=== PATIENT | male | born 1945 | race Caucasian/White ===

== ENCOUNTER 2018-06-25 11:52 | Day surgery (SDC) | payer MEDICARE, OTHER ==
[~2018-06-25] VITALS: Ht 172.7 cm; Wt 65.7 kg
[~2018-06-25 11:52] MED LIST: CEFP500 PO; FURO20 PO; LEVSOD100 PO; POTA10T PO; SODCHL1 PO; TAMS.4ER PO
[2018-06-25] MEDS ORDERED: METO25ER (13:56)
== END 2018-06-25 16:05 | disposition home or self-care (01) ==
LOC: ORSCSDS 11:52
PROVIDERS: Internal Medicine Gastroenterology
PROC: 0DBK8ZX Excision of Ascending Colon, Via Natural or Artificial Opening Endoscopic, Diagnostic (ICD-10-PCS; principal; 2018-06-25 14:15)
PROC: 0DBH8ZX Excision of Cecum, Via Natural or Artificial Opening Endoscopic, Diagnostic (ICD-10-PCS; principal; 2018-06-25 14:15)
DX: R19.4 Change in bowel habit (principal); D12.0 Benign neoplasm of cecum; D12.2 Benign neoplasm of ascending colon; K64.8 Other hemorrhoids; K57.30 Diverticulosis of large intestine without perforation or abscess without bleeding; Z80.0 Family history of malignant neoplasm of digestive organs; I10 Essential (primary) hypertension; N18.3 Chronic kidney disease, stage 3 (moderate); E03.9 Hypothyroidism, unspecified; Z79.899 Other long term (current) drug therapy
CPT/HCPCS: 88305; J7120

== ENCOUNTER 2018-06-30 07:21 | Inpatient (IN) | payer MEDICARE, OTHER ==
[~2018-06-30] VITALS: Ht 172.7 cm; Wt 63.1 kg
[~2018-06-30 07:21] MED LIST changes: +METO25ER
[2018-06-30 07:51] LABS: BASOPHILS ABSOLUTE AUTO 0.02 K/mm3 (0.00-0.23); BASOPHILS PERCENT AUTO 0 % (0-2); EOSINOPHILS ABSOLUTE AUTO 0.03 K/mm3 (0.00-0.68); EOSINOPHILS PERCENT AUTO 1 % (0-6); Hematocrit 42.1 % (37.0-53.0); Hemoglobin 15.6 g/dL (13.5-17.5); IMMATURE GRAN ABSOLUTE AUTO 0.01 K/mm3 (0.00-0.10); IMMATURE GRAN PERCENT AUTO 0 % (0-1); LYMPHOCYTES ABSOLUTE AUTO 1.59 K/mm3 (0.84-5.20); LYMPHOCYTES PERCENT AUTO 25 % (21-46); MONOCYTES ABSOLUTE AUTO 0.79 K/mm3 (0.16-1.47); MONOCYTES PERCENT AUTO 13 % (4-13); Mean Corpuscular HGB 30.5 pg (26.0-34.0); Mean Corpuscular HGB Conc 37.1 g/dL (31.5-36.5); Mean Corpuscular Volume 82 fL (80-100); NEUTROPHILS ABSOLUTE AUTO 3.87 K/mm3 (1.96-9.15); NEUTROPHILS PERCENT AUTO 61 % (41-73); Platelet Count 161 K/mm3 (150-400); RDW Coefficient Variation 12.2 % (11.7-14.2); Red Blood Cell Count 5.12 M/mm3 (4.30-5.90); White Blood Cell Count 6.31 K/mm3 (4.00-11.30)
[2018-06-30 08:10] LABS: Troponin I <0.015 ng/mL (0.000-0.040)
[2018-06-30 08:22] LABS: Alanine Aminotransfer (ALT/SGP 42 U/L (12-78); Albumin, Blood 3.8 g/dL (3.4-5.0); Albumin/Globulin Ratio 1.2 (0.8-1.8); Alk Phos 71 U/L (50-136); Anion Gap 9 mmol/L (6-16); Aspartate Aminotrans (AST/SGOT 45 U/L (12-37); Bilirubin, Total 0.6 mg/dL (0.1-1.0); Blood Urea Nitrogen 20 mg/dL (8-24); Bun/Creatinine Ratio 19.2 (12.0-20.0); CO2, Blood 20 mmol/L (21-32); Calcium, Blood 8.1 mg/dL (8.5-10.1); Chloride, Blood 85 mmol/L (98-108); Creatinine, Blood 1.04 mg/dL (0.60-1.20); Globulin, Blood 3.3 g/dL (2.2-4.0); Glomerular Filtration Rate >60 (60-); Glucose, Blood 82 mg/dL (70-99); Potassium, Blood 5.4 mmol/L (3.5-5.5); Sodium, Blood 114 mmol/L (136-145); Total Protein, Blood 7.1 g/dL (6.4-8.2)
[2018-06-30] MEDS ORDERED: METO25ER PO (08:51)
[2018-07-01 04:38] LABS: Albumin, Blood 3.6 g/dL (3.4-5.0); Anion Gap 11 mmol/L (6-16); Blood Urea Nitrogen 22 mg/dL (8-24); Bun/Creatinine Ratio 16.5 (12.0-20.0); CO2, Blood 23 mmol/L (21-32); Calcium, Blood 8.1 mg/dL (8.5-10.1); Chloride, Blood 87 mmol/L (98-108); Creatinine, Blood 1.33 mg/dL (0.60-1.20); Glomerular Filtration Rate 56 (60-); Glucose, Blood 86 mg/dL (70-99); Phosphorus, Blood 4.5 mg/dL (2.5-4.9); Potassium, Blood 4.6 mmol/L (3.5-5.5); Sodium, Blood 121 mmol/L (136-145); Thyroxine (T4) 11.5 ug/dL (4.5-12.1)
[2018-07-01 04:45] LABS: Osmolality, Serum 258 mos/KG (275-300)
[2018-07-02 04:27] LABS: Calcium, Blood 7.5 mg/dL (8.5-10.1); Creatinine, Blood 1.25 mg/dL (0.60-1.20); Potassium, Blood 4.8 mmol/L (3.5-5.5)
[2018-07-03 05:08] LABS: Alanine Aminotransfer (ALT/SGP 36 U/L (12-78); Albumin, Blood 3.3 g/dL (3.4-5.0); Alk Phos 70 U/L (50-136); Anion Gap 6 mmol/L (6-16); Aspartate Aminotrans (AST/SGOT 27 U/L (12-37); Bilirubin, Total 0.5 mg/dL (0.1-1.0); Blood Urea Nitrogen 19 mg/dL (8-24); Bun/Creatinine Ratio 15.8 (12.0-20.0); CO2, Blood 25 mmol/L (21-32); Calcium, Blood 7.8 mg/dL (8.5-10.1); Chloride, Blood 93 mmol/L (98-108); Globulin, Blood 3.2 g/dL (2.2-4.0); Glomerular Filtration Rate >60 (60-); Glucose, Blood 86 mg/dL (70-99); Potassium, Blood 4.6 mmol/L (3.5-5.5); Sodium, Blood 124 mmol/L (136-145); Total Protein, Blood 6.5 g/dL (6.4-8.2)
[2018-07-03] MEDS ORDERED: LIOT5 PO (09:00)
[2018-07-03] MEDS ORDERED: LEVSOD50 PO (09:00)
[2018-07-03] MEDS ORDERED: Micro-K10 MEQ PO (09:01)
[2018-07-03] MEDS ORDERED: SODCHL1 PO (09:02)
[2018-07-03] MEDS ORDERED: TEMA15 PO (09:03)
[2018-07-03] MEDS ORDERED: FURO20 PO (09:03)
== END 2018-07-03 09:57 | disposition home or self-care (01) | DRG 641 ==
LOC: ER 07:21 → PCU 08:32 → MEDS 07-02 17:59 → ENPENDDIS 07-03 08:21 → MEDS 07-03 09:57
PROVIDERS: Emergency Medicine; Family Medicine
DX: E87.1 Hypo-osmolality and hyponatremia (principal); E03.9 Hypothyroidism, unspecified; I47.9 Paroxysmal tachycardia, unspecified; Z79.899 Other long term (current) drug therapy
CPT/HCPCS: 36415; 80048; 80053; 80069; 83540; 83930; 84436; 84443; 84481; 84484; 85025; 93005; 93010; 96360; 96361; 99285-25; J1940; J7030

== ENCOUNTER 2019-02-04 05:57 | Inpatient (IN) | payer MEDICARE, OTHER ==
[~2019-02-04] VITALS: Ht 172.7 cm; Wt 63.5 kg
[~2019-02-04 05:57] MED LIST changes: +LEVSOD50 PO; +LIOT5 PO; +METO25ER PO; +Micro-K10 MEQ PO; +TEMA15 PO
[2019-02-04 06:34] LABS: BASOPHILS ABSOLUTE AUTO 0.04 K/mm3 (0.00-0.23); BASOPHILS PERCENT AUTO 0 % (0-2); EOSINOPHILS ABSOLUTE AUTO 0.04 K/mm3 (0.00-0.68); EOSINOPHILS PERCENT AUTO 0 % (0-6); Hematocrit 47.6 % (37.0-53.0); Hemoglobin 15.6 g/dL (13.5-17.5); IMMATURE GRAN ABSOLUTE AUTO 0.05 K/mm3 (0.00-0.10); IMMATURE GRAN PERCENT AUTO 1 % (0-1); LYMPHOCYTES ABSOLUTE AUTO 1.71 K/mm3 (0.84-5.20); LYMPHOCYTES PERCENT AUTO 17 % (21-46); MONOCYTES ABSOLUTE AUTO 1.11 K/mm3 (0.16-1.47); MONOCYTES PERCENT AUTO 11 % (4-13); Mean Corpuscular HGB 29.7 pg (26.0-34.0); Mean Corpuscular HGB Conc 32.8 g/dL (31.5-36.5); Mean Corpuscular Volume 91 fL (80-100); Mean Platelet Volume 12.1 fL (9.1-12.4); NEUTROPHILS ABSOLUTE AUTO 7.06 K/mm3 (1.96-9.15); NEUTROPHILS PERCENT AUTO 71 % (41-73); Platelet Count 201 K/mm3 (150-400); RDW Coefficient Variation 13.2 % (11.7-14.2); RDW Standard Deviation 44.2 fL (35.1-46.3); Red Blood Cell Count 5.26 M/mm3 (4.30-5.90); White Blood Cell Count 10.01 K/mm3 (4.00-11.30)
[2019-02-04 06:45] LABS: Albumin, Blood 3.4 g/dL (3.4-5.0); Albumin/Globulin Ratio 0.8 (0.8-1.8); Bilirubin, Total 1.3 mg/dL (0.1-1.0); Bun/Creatinine Ratio 9.1 (12.0-20.0); Calcium, Blood 8.5 mg/dL (8.5-10.1); Creatinine, Blood 4.08 mg/dL (0.60-1.20); Potassium, Blood 5.2 mmol/L (3.5-5.5); Total Protein, Blood 7.4 g/dL (6.4-8.2)
[2019-02-04 06:51] LABS: Influenza A Negative (NEGATIVE); Influenza B Negative (NEGATIVE)
[2019-02-04 08:19] LABS: Free Thyroxine 0.72 ng/dL (0.70-1.60); Magnesium, Blood 1.7 mg/dL (1.6-2.4)
[2019-02-04] MEDS ORDERED: LIOT5 PO (11:45)
[2019-02-04 15:16] LABS: Bun/Creatinine Ratio 10.2 (12.0-20.0); Calcium, Blood 7.2 mg/dL (8.5-10.1); Creatinine, Blood 3.34 mg/dL (0.60-1.20); Potassium, Blood 5.8 mmol/L (3.5-5.5)
[2019-02-04 17:44] LABS: Adenovirus F 40/41 Not Detected (NOT DETECT); Astrovirus Not Detected (NOT DETECT); Campylobacter Sp Not Detected (NOT DETECT); Cryptosporidium Not Detected (NOT DETECT); Cyclospora Cayetanensis Not Detected (NOT DETECT); E. Coli O157 Not Detected (NOT DETECT); Entamoeba Histolytica Not Detected (NOT DETECT); Enteroaggregative E. coli-EAEC Not Detected (NOT DETECT); Enteropathogenic E. coli-EPEC Not Detected (NOT DETECT); Enterotoxigenic E. coli-ETEC Not Detected (NOT DETECT); Giardia Lamblia Not Detected (NOT DETECT); Norovirus GI/GII Detected (NOT DETECT); Plesiomonas Shigelloides Not Detected (NOT DETECT); Rotavirus A Not Detected (NOT DETECT); Salmonella Sp Not Detected (NOT DETECT); Sapovirus Not Detected (NOT DETECT); Shiga Toxin-prod E. coli-STEC Not Detected (NOT DETECT); Shigella/Enteroin E. coli-EIEC Not Detected (NOT DETECT); Vibrio Cholerae Not Detected (NOT DETECT); Vibrio Sp Not Detected (NOT DETECT); Yersinia Enterocolitica Not Detected (NOT DETECT)
--- NOTE | 2019-02-04 18:01 | NUR ---
PT AOX4 JUST SUPER TIRED. PT CONTINUES TO HAVE DIARRHEA AND IS INCONNINENT, BUT HAS NOT HAD NAUSEA SO FAR. PT IN BED ALL DAY SLEEPING. LEFT RIGHT AWAY IN THE AM SHE BEGAN TO GET SICK AND VOMIT. ROOM PUT ON CONTACT UNTIL LABS COULD BE RUN. FOUND PT POSITIVE FOR NORO VIRUS. PT HASN'T WANTED TO EAT, JUST SIP SOME WATER. WILL MONITOR.
[2019-02-04 21:08] LABS: Source, Urine Voided
[2019-02-04 21:15] LABS: Bilirubin, Urine Neg (Neg); Blood, Urine 2+ (Neg); Glucose Qualitative, Urine Neg (Neg); Ketones, Urine 3+ (Neg); Leukocyte Esterase, Urine Neg (Neg); Nitrite, Urine Neg (Neg); Protein, Urine 2+ (Neg); Urobilinogen, Urine NORM (Normal)
[2019-02-04 21:24] LABS: Appearance, Urine Hazy (Clear); Color, Urine Yellow (P-Yellow)
[2019-02-04 21:25] LABS: Amorphous Mod (0-Heavy); Bacteria Rare /hpf; Mucus Light (0-Heavy); Red Blood Cells, Urine 0-2 /hpf (0-2); Squamous Epithelial Cells Rare /hpf (Few); White Blood Cells, Urine Rare /hpf (0-5)
--- NOTE | 2019-02-05 04:19 | NUR ---
73 Y/O MALE SLEPT COMFORTABLY ALL EVENING, NO DIARRHEA OR NAUSEA NOTED OR REPORTED. PT DENIES PAIN. UA OBTAINED AND SENT LAST PM. TELEMETRY REFLECTS SINUS TACHYCARDIA (100'S) PER RN CARDIOLOGY DENICE. PT CONTINUES ON CONTACT ISOLATION, BED IN LOW POSITION, CALL LIGHT AT SIDE.
[2019-02-05 05:38] LABS: Hematocrit 40.8 % (37.0-53.0); Hemoglobin 13.2 g/dL (13.5-17.5); Mean Corpuscular HGB 30.8 pg (26.0-34.0); Mean Corpuscular HGB Conc 32.4 g/dL (31.5-36.5); Mean Corpuscular Volume 95 fL (80-100); Mean Platelet Volume 11.1 fL (9.1-12.4); Platelet Count 138 K/mm3 (150-400); RDW Coefficient Variation 13.5 % (11.7-14.2); RDW Standard Deviation 47.7 fL (35.1-46.3); Red Blood Cell Count 4.29 M/mm3 (4.30-5.90); White Blood Cell Count 4.89 K/mm3 (4.00-11.30)
[2019-02-05 06:01] LABS: Bun/Creatinine Ratio 13.6 (12.0-20.0); Calcium, Blood 8.1 mg/dL (8.5-10.1); Creatinine, Blood 2.13 mg/dL (0.60-1.20); Potassium, Blood 4.9 mmol/L (3.5-5.5)
[2019-02-05 06:07] LABS: Thyroxine (T4) 3.8 ug/dL (4.5-12.1); Triiodothyronine, Free 1.32 pg/mL (2.18-3.98)
--- NOTE | 2019-02-05 17:38 | NUR ---
SUMMARY PT RESTING QUIETLY, HAS HAD A POOR APPETITE T/O THE DAY, IV FLUIDS CONTINUED, PT MED PER EMAR FOR NAUSEA AND FEVER, WILL CONT TO MONITOR
--- NOTE | 2019-02-05 20:56 | NUR ---
NO ACUTE CHANGES NOTED. NO CURRENT COMPLAINTS OF PAIN OR DISCOMFORT NOTED. PATIENT STATES HE IS VERY TIRED AND HAS SLEPT MOST OF THE DAY. NO OTHER ISSUES NOTED, WILL CONTINUE TO MONITOR FOR CHANGES.
--- NOTE | 2019-02-05 22:13 | NUR ---
2030 REPORT RECEIVED. PT RESTING COMFORTABLY IN BED. CONTACT ISOLATION MAINTAINED.
--- NOTE | 2019-02-06 05:01 | NUR ---
73 Y/O MALE RESTED COMFORTABLY ALL EVENING. PTS CONTINUES TO BE CONTACT ISOLATION DUE TO NORVIRUS. PT DENIES PAIN OR NAUSEA. PTS CALL LIGHT AT SIDE WITH BED IN LOW POSITION.
--- NOTE | 2019-02-06 17:23 | NUR ---
SHIFT SUMMARY PT HAS HAD NO ACUTE CHANGES THIS SHIFT, MEDICATED 1X FOR FEVER, NO OTHER COMPLAINTS. PO INTAKE REMAINS POOR, PT REPORTS HE IS NOT HAVING DIARRHEA OR NAUSEA THIS SHIFT, SLEPT T/O MOST OF SHIFT, APPEARS TO BE SLEEPING AT THIS TIME, WILL CONT TO MONITOR UNTIL REPORT GIVEN TO XAVIER RN.
--- NOTE | 2019-02-07 04:14 | NUR ---
SHIFT SUMMARY NO N/V THIS SHIFT. PT HAS DENIED GI COMPLAINTS AND HAS SLEPT T/O THE SHIFT. HE HOWEVER DOES REPORT POOR APPETITE. IVF INFUSING ORDERED. PT INDEPENDENT AND AMBULATORY IN THE ROOM. NO COMPLAINTS OF PAIN. ASSESSMENT UNCHANGED. PLAN IS FOR DC TODAY. WILL CONTINUE TO MONITOR AND REPORT TO ONCOMING RN.
[2019-02-07 05:47] LABS: Albumin, Blood 2.5 g/dL (3.4-5.0); Anion Gap 11 mmol/L (6-16); Blood Urea Nitrogen 13 mg/dL (8-24); Bun/Creatinine Ratio 12.7 (12.0-20.0); CO2, Blood 18 mmol/L (21-32); Calcium, Blood 8.3 mg/dL (8.5-10.1); Chloride, Blood 103 mmol/L (98-108); Creatinine, Blood 1.02 mg/dL (0.60-1.20); Glomerular Filtration Rate >60 (60-); Glucose, Blood 65 mg/dL (70-99); Phosphorus, Blood 3.1 mg/dL (2.5-4.9); Potassium, Blood 4.3 mmol/L (3.5-5.5); Sodium, Blood 132 mmol/L (136-145)
--- NOTE | 2019-02-07 16:12 | NUR ---
SHIFT SUMMARY PT HAS HAD NO ACUTE CHANGES THIS SHIFT, MEDICATED 1X FOR HEADACHE, NO OTHER COMPLAINTS OF ANY KIND. PO INTAKE CONTINUES TO BE POOR, PT BEDRESTING AT THIS TIME, WILL CONT TO MONITOR UNTIL REPORT GIVEN TO XAVIER CHIU.
--- NOTE | 2019-02-08 04:42 | NUR ---
SHIFT SUMMARY NO ACUTE CHANGES OVERNIGHT. PT HAS DENIED NEEDS T/O THE SHIFT. NO N/V, DIARRHEA OR PAIN. PT REPORTS THAT HIS APPETITE IS SOMEWHAT RETURNING AND THAT HE WAS ABLE TO EAT SOME OF HIS DINNER. HE DENIES ABD PAIN. VITALS STABLE. ASSESSMENT OTHERWISE UNCHANGED. PLAN IS FOR DISCHARGE TODAY. TELE IN PLACE WITH NSR. WILL CONTINUE TO MONITOR AND REPORT TO ONCOMING RN.
[2019-02-08 05:49] LABS: Albumin, Blood 2.6 g/dL (3.4-5.0); Anion Gap 9 mmol/L (6-16); Blood Urea Nitrogen 13 mg/dL (8-24); Bun/Creatinine Ratio 12.9 (12.0-20.0); CO2, Blood 24 mmol/L (21-32); Calcium, Blood 8.4 mg/dL (8.5-10.1); Chloride, Blood 103 mmol/L (98-108); Creatinine, Blood 1.01 mg/dL (0.60-1.20); Glomerular Filtration Rate >60 (60-); Glucose, Blood 84 mg/dL (70-99); Phosphorus, Blood 3.6 mg/dL (2.5-4.9); Potassium, Blood 3.9 mmol/L (3.5-5.5); Sodium, Blood 136 mmol/L (136-145)
[2019-02-08] MEDS ORDERED: [UNRECOGNIZED DRUG - OTHER] PO (12:54)
[2019-02-08] MEDS ORDERED: PANT40 PO (12:58)
--- NOTE | 2019-02-08 14:15 | NUR ---
PT. DISCHARGED HOME WITH SPOUSE, MEDS CALLED TO [facility]. PT. AND SPOUSE VERBALIZED UNDERSTANDING OF DISCHARGE INSTRUCTIONS.
== END 2019-02-08 14:19 | disposition home or self-care (01) | DRG 683 ==
LOC: ER 05:57 → MEDS 08:40
PROVIDERS: Emergency Medicine; Internal Medicine; ADMIT Internal Medicine
DX: N17.9 Acute kidney failure, unspecified (principal); E87.1 Hypo-osmolality and hyponatremia; I47.1 Supraventricular tachycardia; A08.4 Viral intestinal infection, unspecified; E86.0 Dehydration; I10 Essential (primary) hypertension; E87.6 Hypokalemia; E03.9 Hypothyroidism, unspecified; Z91.14 Patient's other noncompliance with medication regimen; R13.10 Dysphagia, unspecified
CPT/HCPCS: 36415; 74022; 76770; 80048; 80053; 80069; 81001; 83735; 84436; 84439; 84443; 84481; 85025; 85027; 87507; 87804; 93005; 93010; 96360; 97161; 99285-25; C9113; J2405; J7030; J7050; J7120

== ENCOUNTER 2021-02-17 01:03 | Observation (INO) | payer MEDICARE, OTHER ==
[~2021-02-17] VITALS: Ht 172.7 cm; Wt 64.0 kg
[~2021-02-17 01:03] MED LIST changes: -LEVSOD50 PO; +PANT40 PO; +[UNRECOGNIZED DRUG - OTHER] PO
[2021-02-17 02:22] LABS: BASOPHILS ABSOLUTE AUTO 0.04 K/mm3 (0.00-0.23); BASOPHILS PERCENT AUTO 1 % (0-2); EOSINOPHILS ABSOLUTE AUTO 0.15 K/mm3 (0.00-0.68); EOSINOPHILS PERCENT AUTO 3 % (0-6); Hematocrit 43.6 % (37.0-53.0); Hemoglobin 15.7 g/dL (13.5-17.5); IMMATURE GRAN ABSOLUTE AUTO 0.02 K/mm3 (0.00-0.10); IMMATURE GRAN PERCENT AUTO 0 % (0-1); LYMPHOCYTES ABSOLUTE AUTO 2.42 K/mm3 (0.84-5.20); LYMPHOCYTES PERCENT AUTO 40 % (21-46); MONOCYTES ABSOLUTE AUTO 0.79 K/mm3 (0.16-1.47); MONOCYTES PERCENT AUTO 13 % (4-13); Mean Corpuscular Volume 83 fL (80-100); Mean Platelet Volume 10.8 fL (9.1-12.4); NEUTROPHILS ABSOLUTE AUTO 2.64 K/mm3 (1.96-9.15); NEUTROPHILS PERCENT AUTO 44 % (41-73); Platelet Count 229 K/mm3 (150-400); RDW Coefficient Variation 12.2 % (11.7-14.2); RDW Standard Deviation 37.2 fL (35.1-46.3); Red Blood Cell Count 5.23 M/mm3 (4.30-5.90); White Blood Cell Count 6.06 K/mm3 (4.00-11.30)
[2021-02-17 02:34] LABS: Albumin, Blood 3.9 g/dL (3.4-5.0); Albumin/Globulin Ratio 1.1 (0.8-1.8); Bilirubin, Total 0.7 mg/dL (0.1-1.0); Calcium, Blood 8.3 mg/dL (8.5-10.1); Creatinine, Blood 2.33 mg/dL (0.60-1.20); Globulin, Blood 3.4 g/dL (2.2-4.0); Potassium, Blood 4.2 mmol/L (3.5-5.5); Total Protein, Blood 7.3 g/dL (6.4-8.2)
[2021-02-17 02:37] LABS: International Normalized Ratio 1.02; Prothrombin Time Results 10.9 Sec (9.7-11.5)
[2021-02-17] MEDS ORDERED: LIOT5 PO (03:20)
[2021-02-17] MEDS ORDERED: SODCHL1 (03:21)
[2021-02-17] MEDS ORDERED: Bumetanide0.5 MG (03:26)
[2021-02-17 12:22] LABS: Source, Urine Clean Catch
[2021-02-17 12:25] LABS: Appearance, Urine Clear (Clear); Bilirubin, Urine Neg (Neg); Blood, Urine Neg (Neg); Color, Urine Yellow (P-Yellow); Glucose Qualitative, Urine Neg (Neg); Ketones, Urine Neg (Neg); Leukocyte Esterase, Urine Neg (Neg); Nitrite, Urine Neg (Neg); Protein, Urine Neg (Neg); Specific Gravity, Urine 1.015 (1.003-1.022); Urobilinogen, Urine NORM (Normal)
[2021-02-17] MEDS ORDERED: BUME2 PO (14:23)
[2021-02-17] MEDS ORDERED: SODCHL1 PO (14:26)
--- NOTE | 2021-02-17 16:49 | NUR ---
SHIFT SUMMARY PT IS AOX4. PT DENIES PAIN, N/V, SOB. PT IS A ONE PERSON ASSIST TO BATHROOM. TELE RUNNING SINUS RHYTHM WITH PVCS AT 73 BPM. PT HAS MODERATE INTAKE AND APPETITE. PT HAD CHEST XRAY, HEAD CT, RENAL US, AND ECHO DONE IN ER. PLAN IS TO CONTINUE IV HYDRATION AND NORMALIZE ELECTROLYTES. PT DID NOT HAVE VISITORS TODAY. PT IS PLEASANT, IV RUNNING AT 100ML/HR. PT IS IN BED, CALL LIGHT IN REACH, ALARM ON.
--- NOTE | 2021-02-18 03:18 | NUR ---
SHIFT SUMMARY: VSS. AFEB. 02 97% ON RA. AAOX4. COMMUNICATES NEEDS. REMAINED IN BED ALL NIGHT, USING URINAL WHILE SITTING AT EDGE OF BED. DENIES DIZZINESS AND LIGHTHEADEDNESS WHILE IN BED. MAINTENANCE IV FLUIDS INFUSING PER ORDERS. NSR, 73 PER TELE MONITOR. NO ACUTE OVERNIGHT EVENTS. WCTM.
[2021-02-18 05:28] LABS: BASOPHILS ABSOLUTE AUTO 0.04 K/mm3 (0.00-0.23); BASOPHILS PERCENT AUTO 1 % (0-2); EOSINOPHILS ABSOLUTE AUTO 0.13 K/mm3 (0.00-0.68); EOSINOPHILS PERCENT AUTO 3 % (0-6); Hematocrit 39.8 % (37.0-53.0); Hemoglobin 13.6 g/dL (13.5-17.5); IMMATURE GRAN PERCENT AUTO 0 % (0-1); LYMPHOCYTES ABSOLUTE AUTO 1.85 K/mm3 (0.84-5.20); LYMPHOCYTES PERCENT AUTO 44 % (21-46); MONOCYTES ABSOLUTE AUTO 0.58 K/mm3 (0.16-1.47); MONOCYTES PERCENT AUTO 14 % (4-13); Mean Corpuscular HGB 29.8 pg (26.0-34.0); Mean Corpuscular HGB Conc 34.2 g/dL (31.5-36.5); Mean Corpuscular Volume 87 fL (80-100); Mean Platelet Volume 10.8 fL (9.1-12.4); NEUTROPHILS ABSOLUTE AUTO 1.61 K/mm3 (1.96-9.15); NEUTROPHILS PERCENT AUTO 38 % (41-73); Platelet Count 195 K/mm3 (150-400); RDW Coefficient Variation 12.4 % (11.7-14.2); RDW Standard Deviation 39.6 fL (35.1-46.3); Red Blood Cell Count 4.57 M/mm3 (4.30-5.90); White Blood Cell Count 4.21 K/mm3 (4.00-11.30)
[2021-02-18 06:11] LABS: Albumin, Blood 3.2 g/dL (3.4-5.0); Albumin/Globulin Ratio 1.1 (0.8-1.8); Bilirubin, Total 0.5 mg/dL (0.1-1.0); Bun/Creatinine Ratio 24.3 (12.0-20.0); Creatinine, Blood 1.73 mg/dL (0.60-1.20); Potassium, Blood 5.5 mmol/L (3.5-5.5); Thyroid Stimulating Hormone 16.8 uIU/mL (0.360-4.800); Total Protein, Blood 6.2 g/dL (6.4-8.2)
--- NOTE | 2021-02-18 13:50 | NUR ---
DISCHARGE NOTE PT IS AOX4. PT IV REMOVED BY THIS RN. DC INSTRUCTIONS REVIEWED WITH PT WHO VERBALIZED AN UNDERSTANDING. PT BELONGINGS GATHERED AND PRESENT WITH PT UPON DC. PT DRESSED SELF IN HOME CLOTHING. PT WHEELED OFF UNIT WITH AND PUBLIC RECORDS RESEARCHER. PT HAS LEFT THE BUILDING.
--- NOTE | 2021-02-18 20:37 | NUR ---
REVIEWED PT'S INFO TO GET SCRIPT AND FAX TO PHARMACY FOR ONE OF HIS NEW MEDS FOR HOME
== END 2021-02-18 13:59 | disposition home or self-care (01) ==
LOC: ER 01:03 → MEDS 01:04
PROVIDERS: Student in an Organized Health Care Education/Training Program; ADMIT Internal Medicine
DX: N17.9 Acute kidney failure, unspecified (principal); I95.1 Orthostatic hypotension; E86.9 Volume depletion, unspecified; E87.1 Hypo-osmolality and hyponatremia; I12.9 Hypertensive chronic kidney disease with stage 1 through stage 4 chronic kidney disease, or unspecified chronic kidney disease; N18.30 Chronic kidney disease, stage 3 unspecified; E03.9 Hypothyroidism, unspecified; N40.0 Benign prostatic hyperplasia without lower urinary tract symptoms
CPT/HCPCS: 36415; 70450; 71045; 76770; 80053; 81003; 83735; 84443; 85025; 85610; 85730; 93005; 93010; 96372; 99285-25; A9270; G0378; J1650; J7030

== ENCOUNTER 2021-11-04 04:10 | Inpatient (IN) | payer MEDICARE, OTHER ==
[~2021-11-04] VITALS: Ht 172.7 cm; Wt 60.9 kg
[~2021-11-04 04:10] MED LIST changes: +BUME2 PO; +Bumetanide0.5 MG; +SODCHL1
[2021-11-04 05:58] LABS: BASOPHILS ABSOLUTE AUTO 0.03 K/mm3 (0.00-0.23); BASOPHILS PERCENT AUTO 1 % (0-2); EOSINOPHILS ABSOLUTE AUTO 0.14 K/mm3 (0.00-0.68); EOSINOPHILS PERCENT AUTO 3 % (0-6); Hematocrit 40.9 % (37.0-53.0); IMMATURE GRAN ABSOLUTE AUTO 0.01 K/mm3 (0.00-0.10); IMMATURE GRAN PERCENT AUTO 0 % (0-1); LYMPHOCYTES ABSOLUTE AUTO 2.23 K/mm3 (0.84-5.20); LYMPHOCYTES PERCENT AUTO 40 % (21-46); MONOCYTES ABSOLUTE AUTO 0.71 K/mm3 (0.16-1.47); MONOCYTES PERCENT AUTO 13 % (4-13); Mean Corpuscular Volume 79 fL (80-100); Mean Platelet Volume 11.1 fL (9.1-12.4); NEUTROPHILS ABSOLUTE AUTO 2.47 K/mm3 (1.96-9.15); NEUTROPHILS PERCENT AUTO 44 % (41-73); Platelet Count 236 K/mm3 (150-400); RDW Coefficient Variation 11.6 % (11.7-14.2); RDW Standard Deviation 33.6 fL (35.1-46.3); Red Blood Cell Count 5.17 M/mm3 (4.30-5.90); White Blood Cell Count 5.59 K/mm3 (4.00-11.30)
[2021-11-04 06:14] LABS: Albumin, Blood 3.8 g/dL (3.4-5.0); Bilirubin, Total 0.6 mg/dL (0.1-1.0); Bun/Creatinine Ratio 15.3 (12.0-20.0); Calcium, Blood 8.4 mg/dL (8.5-10.1); Creatinine, Blood 1.24 mg/dL (0.60-1.20); Globulin, Blood 3.7 g/dL (2.2-4.0); Potassium, Blood 4.9 mmol/L (3.5-5.5); Total Protein, Blood 7.5 g/dL (6.4-8.2)
[2021-11-04 06:58] LABS: Hemoglobin 16.1 g/dL (13.5-17.5); Mean Corpuscular HGB Conc 37.3 g/dL (31.5-36.5)
[2021-11-04 07:23] LABS: Source, Urine Clean Catch
[2021-11-04 07:29] LABS: Appearance, Urine Clear (Clear); Bilirubin, Urine Neg (Neg); Blood, Urine Neg (Neg); Color, Urine Yellow (P-Yellow); Glucose Qualitative, Urine Neg (Neg); Ketones, Urine Neg (Neg); Leukocyte Esterase, Urine Neg (Neg); Nitrite, Urine Neg (Neg); Protein, Urine Neg (Neg); Urobilinogen, Urine NORM (Normal)
[2021-11-04 10:23] LABS: Albumin, Blood 3.6 g/dL (3.4-5.0); Anion Gap 9 mmol/L (6-16); Blood Urea Nitrogen 18 mg/dL (8-24); Bun/Creatinine Ratio 14.5 (12.0-20.0); CO2, Blood 24 mmol/L (21-32); Calcium, Blood 8.6 mg/dL (8.5-10.1); Chloride, Blood 78 mmol/L (98-108); Creatinine, Blood 1.24 mg/dL (0.60-1.20); Glomerular Filtration Rate 56 (60-); Glucose, Blood 83 mg/dL (70-99); Phosphorus, Blood 2.9 mg/dL (2.5-4.9); Potassium, Blood 4.7 mmol/L (3.5-5.5); Sodium, Blood 111 mmol/L (136-145)
--- NOTE | 2021-11-04 11:00 | NUR ---
INITIAL ASSESSMENT PATIENT ARRIVED FROM ER AT 1014. PATIENT AFEBRILE. PATIENT ALERT AND ORIENTED X 4. PATIENT SLIGHTLY WEAKENED AND AMBULATION IS OFF BALANCE. PATIENT DENIES PAIN. LUNGS CLEAR T/O. PATIENT SATTING 90% AND GREATER ON RA. PATIENT IN SR WITH BBB, HR IN THE 50S. SBP 140S TO 160S. GI WNL. PATIENT STATES THAT HE DID HAVE DIARRHEA "THE OTHER DAY" BUT THAT HIS GAVE HIM SOME MEDICINE FOR IT AND IT STOPPED. APPEARS WNL. SKIN APPEARS WNL. PATIENT IS ABLE TO REPOSITION HIMSELF IN BED. 3% SODIUM INFUSING AT 15 MLS/ HOUR. BED LOW, CALL LIGHT IN REACH. PATIENT ORIENTED TO UNIT, ROOM AND CALL LIGHT. WILL CONTINUE TO MONITOR PATIENT FREQUENTLY THROUGHOUT SHIFT.
--- NOTE | 2021-11-04 12:20 | NUR ---
PATIENT AFEBRILE. HR 50S TO 60S. SBP 120S TO 140S. SODIUM DRIP REMAINS AT 15 MLS/ HOUR. NO OTHER ACUTE CHANGES TO NOTE ON AT THIS TIME. WILL CONTINUE TO MONITOR.
[2021-11-04 12:37] LABS: Magnesium, Blood 1.4 mg/dL (1.6-2.4); Uric Acid, Blood 4.9 mg/dL (3.5-7.2)
[2021-11-04 12:44] LABS: Albumin, Blood 3.5 g/dL (3.4-5.0); Anion Gap 9 mmol/L (6-16); Blood Urea Nitrogen 19 mg/dL (8-24); Bun/Creatinine Ratio 15.6 (12.0-20.0); CO2, Blood 24 mmol/L (21-32); Calcium, Blood 8.1 mg/dL (8.5-10.1); Chloride, Blood 78 mmol/L (98-108); Creatinine, Blood 1.22 mg/dL (0.60-1.20); Glomerular Filtration Rate 57 (60-); Glucose, Blood 99 mg/dL (70-99); Phosphorus, Blood 2.8 mg/dL (2.5-4.9); Potassium, Blood 4.5 mmol/L (3.5-5.5); Sodium, Blood 111 mmol/L (136-145)
[2021-11-04] MEDS ORDERED: SODCHL1 PO (13:29)
[2021-11-04 14:56] LABS: Source, Urine Catheter
[2021-11-04 15:01] LABS: Appearance, Urine Clear (Clear); Bilirubin, Urine Neg (Neg); Blood, Urine Neg (Neg); Color, Urine Yellow (P-Yellow); Glucose Qualitative, Urine Neg (Neg); Ketones, Urine Neg (Neg); Leukocyte Esterase, Urine Neg (Neg); Nitrite, Urine Neg (Neg); Protein, Urine Neg (Neg); Urobilinogen, Urine NORM (Normal); pH, Urine 6.5 (5.0-8.0)
--- NOTE | 2021-11-04 15:30 | NUR ---
DR. DAVIDSON CALLED AND INFORMED OF LAB COMING BACK AT 121 FROM 111. INFORMED THAT NURSE SPOKE WITH STAFF THAT OBTAINED LAB AND THAT SODIUM INFUSING WAS NOT PAUSED WHILE LAB BEING DRAWN FROM NEARBY LINE AND THAT NURSE BELIEVED SODIUM LAB INCORRECT. INFORMED THAT SODIUM INFUSION HAD BEEN PAUSED AND NEW LAB ORDERED.
--- NOTE | 2021-11-04 16:00 | NUR ---
PATIENT AFEBRILE. HR 50S TO 60S. SBP 120S TO 140S. PFEIFFER PLACED EARLIER. 3% SODIUM DRIP INFUSING AT 25 MLS/ HOUR. NO OTHER ACUTE CHANGES TO NOTE ON AT THIS TIME. WILL CONTINUE TO MONITOR.
--- NOTE | 2021-11-04 16:19 | NUR ---
DR. PUGA CALLED AND INFORMED THAT PATIENT'S SODIUM ORIGINALLY CAME BACK AT 121 BUT THAT NURSE FELT IT WAS NOT CORRECT. SECOND SODIUM CAME BACK AT 112. ORDER FOR ANOTHER SODIUM IN 1 HOUR OBTAINED AND 3% SALINE RESTARTED.
--- NOTE | 2021-11-04 18:43 | NUR ---
SHIFT SUMMARY PATIENT REMAINED ALERT AND ORIENTED X 4, AFEBRILE. PATIENT HAD NO COMPLAINTS OF PAIN. PATIENT HAS REMAINED BEDREST THIS SHIFT AFTER APPEARING OFF BALANCE WITH TRANSFER FROM ER RBRADY TO ICU BED. PATIENT SLIGHTLY WEAK BUT ABLE TO REPOSITION SELF IN BED. PATIENT REMAINS SATTING 90% AND GREATER ON RA. PATIENT REMAINS SB TO SR WITH BBB, HR 50S TO 60S. SBP MOSTLY 1-TEENS TO 160S. PATIENT DID VAGAL AFTER POWERGLIDE PLACED. PATIENT BOUNCED BACK SHORTLY AFTER. NO BM THIS SHIFT. PATIENT HAD GOOD APPETITE. DR. PUGA PLACED PATIENT ON 1000 ML FLUID RESTRICTION. PFEIFFER PLACED FOR RETENTION BLADDER SCAN SHOWED OVER 326 MLS OF URINE LEFT OVER IN BLADDER IMMEDIATELY POST VOID. PATIENT HAD 1275 MLS OF URINE OUT THIS SHIFT. NO CHANGES TO SKIN NOTED. 3% SODIUM INCREASED FROM 15 MLS/ HOUR TO 30 MLS/ HOUR. PATIENT RECEIVED 1 G MAG THIS SHIFT. US RENAL WITH BLADDER PERFORMED THIS SHIFT. BED LOW, CALL LIGHT IN REACH. NO COMPLAINTS AT THIS TIME. REPORT WILL BE GIVEN TO ASSUMING TATTOO TECHNICIAN NURSE SHORTLY.
--- NOTE | 2021-11-04 21:23 | NUR ---
NA+ CAME BACK AT 114, CALLED , 3% NS INFUSION INCREASED TO 35 ml/hr PER MD. WILL RECHECK NA LEVEL AT 0100.
[2021-11-05 01:37] LABS: Magnesium, Blood 1.7 mg/dL (1.6-2.4)
[2021-11-05 01:39] LABS: Hemoglobin 14.8 g/dL (13.5-17.5)
[2021-11-05 01:40] LABS: Albumin, Blood 3.3 g/dL (3.4-5.0); Anion Gap 9 mmol/L (6-16); Blood Urea Nitrogen 21 mg/dL (8-24); Bun/Creatinine Ratio 18.1 (12.0-20.0); CO2, Blood 19 mmol/L (21-32); Chloride, Blood 88 mmol/L (98-108); Creatinine, Blood 1.16 mg/dL (0.60-1.20); Glomerular Filtration Rate >60 (60-); Glucose, Blood 92 mg/dL (70-99); Phosphorus, Blood 3.6 mg/dL (2.5-4.9); Potassium, Blood 4.8 mmol/L (3.5-5.5); Sodium, Blood 116 mmol/L (136-145)
--- NOTE | 2021-11-05 05:57 | NUR ---
END OF SHIFT SUMMARY: No sigificant changes in patient condition overnight. Alert and oriented x4, cooperative but was slightly upset due to q3 sodium lab draws, does understand the importance of lab draws after pt education. Pt did sleep overnight. Sodium levels have been slowly increasing, last Na+ level was 118 and new orders from Dr. Wayne have been placed and acknowledged. Did not drink much fluids overnight, encouraged pt to drink alloted 1L of fluids.
--- NOTE | 2021-11-05 08:05 | NUR ---
INITIAL ASSESSMENT PATIENT SLEEPING UPON ENTERING ROOM. PATIENT ALERT AND ORIENTED X 4, AFEBRILE. PATIENT WEAK BUT ABLE TO REPOSITION SELF IN BED. PATIENT DENIES PAIN. PATIENT SATTING 90% AND GREATER ON RA. LUNGS CLEAR. PATIENT IN SR, HR IN THE 60S. SBP 120S TO 130S. GI WNL. PFEIFFER IN PLACE FOR RETENTION. URINE CRANBERRY IN COLOR WITH BLOODY SEDIMENT NOTED. SKIN APPPEARS WNL. 3% SODIUM DRIP DC'D. PATIENT STARTED SODIUM TABS THIS AM. NEXT LABS AT 1400. BED LOW, CALL LIGHT IN REACH. WILL CONTINUE TO MONITOR PATIENT FREQUENTLY THROUGHOUT SHIFT.
--- NOTE | 2021-11-05 12:20 | NUR ---
PATIENT AFEBRILE. NO COMPLAINTS OF PAIN. HR IN THE 60S. SBP IN THE 130S. PFEIFFER DC'D. FLOMAX GIVEN. NO OTHER ACUTE CHANGES TO NOTE ON AT THIS TIME. WILL CONTINUE TO MONITOR.
--- NOTE | 2021-11-05 16:00 | NUR ---
PATIENT AFEBRILE. HR IN THE 60S. SBP IN THE LOW 100S. NO COMPLAINTS. NO OTHER ACUTE CHANGES TO NOTE ON AT THIS TIME. WILL CONTINUE TO MONITOR.
--- NOTE | 2021-11-05 18:13 | NUR ---
DR. DAVIDSON CALLED AND INFORMED THAT PATIENT VOIDED 100 MLS POST PFEIFFER AND THAT BLADDER SCAN SHOWED 101 MLS IN BLADDER POST VOID. STATED TO BLADDER SCAN Q6H AND STRAIGHT CATH IF OVER 250 MLS OF URINE.
--- NOTE | 2021-11-05 18:39 | NUR ---
SHIFT SUMMARY PATIENT REMAINED ALERT AND ORIENTED X 4, AFEBRILE. PATIENT HAD NO COMPLAINTS OF PAIN. PATIENT WORKED WITH PT AND AMBULATED IN ROOM SBA WITH FWW. PATIENT REMAINED SATTING 90% AND GREATER ON RA. PATIENT REMAINED IN SR, HR 60S TO 70S. SBP LOW 100S TO 140S. NO BM THIS SHIFT. PATIENT HAD OKAY APPETITE. PFEIFFER DC'D THIS SHIFT. URINE FROM PFEIFFER CRANBERRY COLOR WITH BLOODY SEDIMENT. URINE YELLOW IN COLOR AFTER PFEIFFER REMOVED. 101 MLS OF URINE NOTED WITH BLADDER SCANNER POST VOID OF 100 MLS URINE AFTER PFEIFFER REMOVAL. ORDERED TO BLADDER SCAN Q6H AND STRAIGHT CATH IF OVER 250 MLS OF URINE IN BLADDER. FLOMAX STARTED THIS SHIFT TO HELP WITH RETENTION. PATIENT HAD TOTAL OF 650 MLS OF URINE OUTPUT THIS SHIFT. NO CHANGE TO SKIN NOTED. PATIENT HAD PARTIAL BATH THIS SHIFT. SODIUM LAB TO BE DRAWN AT [address] PUGA TO BE CALLED BY 2100. BED LOW, CALL LIGHT IN REACH. PATIENT COMFORTABLE AT THIS TIME. REPORT WILL BE GIVEN TO ONCOMING PRODUCT SAFETY COORDINATOR NURSE SHORTLY.
--- NOTE | 2021-11-05 20:00 | NUR ---
SODIUM 3% INFUSION SALINE 3% INFUSION RESUMED PER DR PUGA AT 25 ML/HR, WILL RECHECK SODIUM LEVEL IN 2 HOURS
--- NOTE | 2021-11-05 23:05 | NUR ---
3% SALINE RATE INCREASED PER ORDERS FROM DR PUGA
--- NOTE | 2021-11-05 23:39 | NUR ---
POST VOID RESIDUAL PT VOIDED 375 ML, BLADDER SCAN FOR 219 ML AT THIS TIME. WILL CONT TO MONITOR.
--- NOTE | 2021-11-06 01:31 | NUR ---
SALINE 3% RATE INCREASED TO 35 ML/HR PER ORDERS
--- NOTE | 2021-11-06 06:00 | NUR ---
PT RESTS QUIETLY THROUGHOUT SHIFT ALTHOUGH HE STATES THAT IT HAS BEEN DIFFICULT TO SLEEP. SODIUM DECREASED TO AT 2000 DRAW, 3% SALINE INFUSION RESUMED PER DR PUGA, MOST RECENT SODIUM LEVEL IS CURRENTLY PENDING. PT STATES THAT STRENGTH FEELS LIKE IT IS IMPROVING. HE IS VOIDING WITHOUT DIFFICULTY AND POST VOID RESIDUALS VIA BLADDER SCAN ARE LESS THAN 250 ML. OTHERWISE NO ACUTE CHANGES.
[2021-11-06 06:30] LABS: Bun/Creatinine Ratio 14.9 (12.0-20.0); Creatinine, Blood 1.34 mg/dL (0.60-1.20); Potassium, Blood 5.4 mmol/L (3.5-5.5)
--- NOTE | 2021-11-06 08:16 | NUR ---
AM NOTE... ASSUMED CARE OF PT AT 0700, THE PT IS A&Ox4. THE PT DENEIS ANY PAIN AT THIS TIME. VS STABLE. L/S CLEAR T/O ON RA. NO EDEMA NOTED ON ASSESSMENT. BT PRESENT AND HYPOACTIVE, ABD IS SOFT AND NONTENDER TO PALP. THE PT IS STILL C/O OF WEAKNESS BUT STATES THIS HAS IMPROVED. THE PT ALSO STATES THAT VOIDING WITH THE URINAL HAS IMPROVED. WILL CONTINUE TO MONITOR.
[2021-11-06 12:50] LABS: Anion Gap 7 mmol/L (6-16); Blood Urea Nitrogen 18 mg/dL (8-24); Bun/Creatinine Ratio 13.5 (12.0-20.0); CO2, Blood 25 mmol/L (21-32); Chloride, Blood 91 mmol/L (98-108); Creatinine, Blood 1.33 mg/dL (0.60-1.20); Glomerular Filtration Rate 52 (60-); Glucose, Blood 100 mg/dL (70-99); Phosphorus, Blood 3.3 mg/dL (2.5-4.9); Potassium, Blood 4.7 mmol/L (3.5-5.5); Sodium, Blood 123 mmol/L (136-145)
--- NOTE | 2021-11-06 13:16 | NUR ---
PT UPDATE... PT WORKED WITH PT/OT, WHILE THE PT WAS SITTING ON THE SIDE OF THE BED THE PT HAD A SYNCOPAL EPISODE, THE PT HAD BECOME HYPOTENSIVE. ONCE THE PT WAS BACK IN THE BED THE PT'S BP IMPROVED WITH SBPs IN THE 130'S PER PT/OT STAFF. APROX 1 HOUR LATER THE PT ASKED TO GET UP TO USE THE URINAL, THIS RN WAS AT THE PT'S SIDE, HE DID WELL STANDING WHILE USING THE URINAL BUT ONCE HE WAS DONE THE PT STARTED TO FALL BACK INTO THE BED, THIS RN HELPED EASE THE PT BACK INTO BED, HIS BP AT THIS TIME WAS 81/48, A RECHECK OF HIS BP A SHORT WHILE LATER SHOWED 108/52. THE PT SAID HE FELT IT WAS BECAUSE HE HAD NOT SLEPT ALL NIGHT LAST NIGHT. WILL CONTINUE TO MONITOR.
[2021-11-06 16:48] LABS: Albumin/Globulin Ratio 1.1 (0.8-1.8); Bilirubin, Total 0.4 mg/dL (0.1-1.0); Bun/Creatinine Ratio 12.9 (12.0-20.0); Calcium, Blood 8.1 mg/dL (8.5-10.1); Creatinine, Blood 1.4 mg/dL (0.60-1.20); Globulin, Blood 2.8 g/dL (2.2-4.0); Potassium, Blood 4.1 mmol/L (3.5-5.5); Total Protein, Blood 5.8 g/dL (6.4-8.2)
--- NOTE | 2021-11-06 17:01 | NUR ---
PT UPDATE.... AT APROX 1550 THE PT HAD REQUESTED TO USE THE TOILET TO HAVE A BM, THE PT WAS PLACED ON A BEDPAN. AT 1602 THE PT'S BP DROPED FROM 114/53 TO 54/33, HIS HR ALSO DROPED FROM THE 60'S-70'S TO THE 40'S. THIS RN WENT INTO THE ROOM TO ASSESS THE PT, HE WAS VERY APONTE IN COLOR, COLD TO THE TOUCH AND VERY DIAPHORETIC. THE PT WAS LETHARGIC AND SEEMED TO HAVE A HARD TIME KEEPING HIS EYES OPEN BUT WOULD RESPOND APPROPRIATELY TO QUESTIONS BY THIS RN. THE PT'S BP WAS RECHECKED AND IT WAS 54/31. THIS RN CALLED THE PROVIDER AND A 1000MLS BOLUS WAS STARTED AND AN AMP OF ATROPINE WAS GIVEN. DEFIB PADS WERE PLACED ON THE PT DURING THIS TIME WELL. THE PT RESPONDED WELL TO THE ATROPINE AND THE BOLUS WITH BPs INCREASING TO 112/56. THE PT'S COLOR RETURNED AND THE PT WAS MORE AWAKE/ALERT. THE PT HAD STATED THAT "THIS BAD FEELING STARTED WHEN I HAD SHOOTING CRAMPS IN MY BELLY LIKE HAD TO HAVE A BM." THE PROVIDER ARRIVED AT THE BEDSIDE TO ASSESS THE PT, NEW ORDERS OBTAINED FOR LABS. WILL CONTINUE TO MONITOR.
[2021-11-06 18:12] LABS: Bun/Creatinine Ratio 13.6 (12.0-20.0); Calcium, Blood 7.7 mg/dL (8.5-10.1); Creatinine, Blood 1.32 mg/dL (0.60-1.20); Magnesium, Blood 1.7 mg/dL (1.6-2.4); Potassium, Blood 4.4 mmol/L (3.5-5.5)
--- NOTE | 2021-11-06 19:07 | NUR ---
SHIFT SUMMARY... AT 1746 THE PT'S BP STARTED TO DROP AGAIN FROM 116/61 TO 83/49, THE PT'S HR WAS STILL IN THE 80'S, THE PT WAS C/O OF THE "STOMACH CRAMPS" WHILE HIS PRESSURES WERE LOW. THE PROVIDER WAS CALLED AND ANOTHER ORDER FOR A 1000MLS BOLUS WAS OBTAINED, THIS WAS GIVEN. THE PT'S BP IMPROVED QUICKLY WITH THE BOLUS. CURRENTLY THE PT'S SBP IS IN THE 130'S-140'S. THE PT IS CURRENTLY C/O OF THE URGE TO VOID BUT NOT BEING ABLE TO VOID AT THIS TIME. THE PT'S OTHER VS STABLE AT THIS TIME. REPORT WAS GIVEN TO ONCOMING RN.
--- NOTE | 2021-11-06 19:20 | NUR ---
ASSUMED CARE OF PT, BEDSIDE REPORT RECEIVED. PT ATTEMPTING TO VOID AND STATES THAT HE IS HAVING DIFFICULTY WITH VOID WHILE LYING IN BED. VITAL SIGNS ARE REVIEWED WITH OFFGOING RN AT THIS TIME, HEART RATE IS NOTED IMPROVED TO 70S, PRESSURES IMPROVED POST BOLUS, WILL CONT TO MONITOR. PT REQUESTS TO CONTINUE ATTEMPT TO VOID, PT WILL CALL FOR BLADDER SCAN WHEN FINISHED WITH URINAL.
--- NOTE | 2021-11-06 20:00 | NUR ---
BLADDER SCAN PT STATES THAT HE IS UNABLE TO VOID WHILE LYING IN BED, ASSISTED PT TO SIT AND THEN STAND, PT DENIES DIZZINESS/VERTIGO THROUGHOUT, VOIDS 100 ML IN URINAL AND STATES THAT HE CONTINUES TO FEEL THE NEED TO VOID. BLADDER SCAN DONE, RESULTS ARE 700 ML POST VOID RESIDUAL, STRAIGHT CATH PER ORDERS, 550 ML URINE OUT, PT STATES NO LONGER FEELS NEED TO VOID. DOES STATE THAT HE HOPES THAT HE WON'T HAVE TO BE CATHED FOR ALL URINE OUTPUT TONIGHT. HE ALSO EXPRESSES FRUSTRATION WITH INABLITY TO GET COMFORTABLE ENOUGH IN BED TO SLEEP AND THAT HE HASN'T HAD A BOWEL MOVEMENT IN [address] TRAN, HOSPITALIST MANAGER ADMINISTRATIVE, ORDERS FOR MELATONIN AND MIRALAX OBTAINED, CLARIFIED MIRILAX ORDER WITH PT ORDERED FLUID RESTRICTION.
[2021-11-07 03:38] LABS: Hematocrit 33.4 % (37.0-53.0); Hemoglobin 12.3 g/dL (13.5-17.5)
[2021-11-07 03:59] LABS: Albumin, Blood 2.9 g/dL (3.4-5.0); Anion Gap 6 mmol/L (6-16); Blood Urea Nitrogen 17 mg/dL (8-24); Bun/Creatinine Ratio 12.8 (12.0-20.0); CO2, Blood 24 mmol/L (21-32); Calcium, Blood 7.8 mg/dL (8.5-10.1); Chloride, Blood 94 mmol/L (98-108); Creatinine, Blood 1.33 mg/dL (0.60-1.20); Glomerular Filtration Rate 52 (60-); Glucose, Blood 88 mg/dL (70-99); Magnesium, Blood 1.3 mg/dL (1.6-2.4); Phosphorus, Blood 3.1 mg/dL (2.5-4.9); Potassium, Blood 5.2 mmol/L (3.5-5.5); Sodium, Blood 124 mmol/L (136-145)
--- NOTE | 2021-11-07 06:28 | NUR ---
PT RESTS QUIETLY THROUGHOUT SHIFT, REPORTS THAT HE WAS ABLE TO GET SOME SLEEP TONIGHT. HE REMAINS ALERT AND ORIENTED. NO EPISODES OF BRADYCARDIA THIS SHIFT, PRESSURES STABLE THROUGHOUT NOC. PT WAS NOTED TO HAVE HEART RATE INCREASED TO LOW 100S WITH STANDING AT BEDSIDE, HE DID ADMIT TO SLIGHT DIZZINESS WITH STANDING AT MIDNOC HOWEVER DENIES THIS AM WITH STAND TO VOID. OXYGEN SATURATION REMAINS 99-100% AND PT EXPRESSED FRUSTRATION WITH MONITORING CABLES AND REPOSITIONING, BIOX REMOVED AND SPOT CHECKS DONE. NO BM THIS SHIFT, MIRILAX ADMIN AT HS. PT DID REQUIRE IN AND OUT CATH AT THE BEGINNING OF SHIFT FOR POST VOID RESIDUAL OF 700 ML, POST VOID RESIDUALS SINCE HAVE SCANNED AT LESS THAN 250 ML AND PT FEELS THAT HIS BLADDER IS EMPTYING.
--- NOTE | 2021-11-07 11:53 | NUR ---
AM NOTE... ASSUMED CARE OF PT AT 0700, THE PT IS A&Ox4. THE PT'S VS ARE STABLE AT THIS TIME. PT STATED HE GOT SOME SLEEP LAST NIGHT AND FEELS "A LITTLE BETTER THAN YESTERDAY." THE PT IS ON RA WITH O2 SATS >95%, L/S CLEAR T/O. THE PT IS IN SR IN THE 80'S-90'S, NO EDEMA NOTED ON ASSESSMENT. BP STABLE. BT PRESENT AND HYPOACTIVE, BOWEL CARE WAS STARTED PER THE PT'S REQUEST AND THE FACT HE HAS NOT HAD A BM IN 4 DAYS. THE PT CONTINUES ON A 1L FLUID RESTRICTION. CALL LIGHT IN REACH WILL CONTINUE TO MONITOR.
--- NOTE | 2021-11-07 18:33 | NUR ---
SHIFT SUMMARY.... NO ACUTE NEGATIVE CHANGES NOTED THIS SHIFT. THE PT'S VS HAVE BEEN STABLE EXCEPT WHEN THE PT HAS SAT UP ON THE SIDE OF THE BED OR STOOD WITH STAFF, THE PT THEN HAS ORTHOSTATIC HYPOTENSION. THE PT WAS NOT SYMPTOMATIC WITH THE HYPOTENSION TODAY LIKE HE WAS YESTERDAY. THE PT HAS BEEN VOIDING USING THE URINAL THIS SHIFT WITH SOME POST VOID RESIDUALS IN THE 170'S. THE PT'S TMAX THIS SHIFT WAS 100.0, THE PT DENIED ANY SYMPTOMS AND STATED HE FELT "BETTER TODAY THAN YESTERDAY" CALL LIGHT IN REACH WILL CONTINUE TO MONITOR UNTIL REPORT IS GIVEN TO ONCOMING RN.
[2021-11-08 04:10] LABS: Hematocrit 32.5 % (37.0-53.0); Hemoglobin 11.8 g/dL (13.5-17.5)
[2021-11-08 04:29] LABS: Alanine Aminotransfer (ALT/SGP 58 U/L (12-78); Albumin, Blood 2.6 g/dL (3.4-5.0); Albumin/Globulin Ratio 0.8 (0.8-1.8); Alk Phos 147 U/L (50-136); Anion Gap 6 mmol/L (6-16); Aspartate Aminotrans (AST/SGOT 56 U/L (12-37); Bilirubin, Total 1.4 mg/dL (0.1-1.0); Blood Urea Nitrogen 12 mg/dL (8-24); Bun/Creatinine Ratio 10.4 (12.0-20.0); CO2, Blood 23 mmol/L (21-32); Chloride, Blood 94 mmol/L (98-108); Creatinine, Blood 1.15 mg/dL (0.60-1.20); Globulin, Blood 3.2 g/dL (2.2-4.0); Glomerular Filtration Rate >60 (60-); Glucose, Blood 75 mg/dL (70-99); Magnesium, Blood 1.7 mg/dL (1.6-2.4); Phosphorus, Blood 3.2 mg/dL (2.5-4.9); Potassium, Blood 4.3 mmol/L (3.5-5.5); Sodium, Blood 123 mmol/L (136-145); Total Protein, Blood 5.8 g/dL (6.4-8.2)
--- NOTE | 2021-11-08 06:01 | NUR ---
SHIFT SUMMERY: NO ACUTE CHANGES OVERNIGHT. VS WNL
--- NOTE | 2021-11-08 17:55 | NUR ---
SHIFT SUMMARY NO ACUTE CHANGES THIS SHIFT. PT UP TO CHAIR FOR MOST OF SHIFT. WORKED c PT/OT. TOLERATED WELL. +ORTHOSTATIC VS BUT ASYMPTOMATIC. CHANGED TO 1L FLUID RESTRICTION. ADDITIONAL NACL TABS AND LASIX GIVEN. REPEAT NA UNCHANGED, PLAN TO REPEAT AT 2200. PT CHANGED TO PCU STATUS THIS SHIFT. WILL CONTINUE TO MONITOR UNTIL REPORT TO ONCOMING NURSE.
[2021-11-08 22:18] LABS: Potassium, Blood 3.9 mmol/L (3.5-5.5)
[2021-11-09 05:39] LABS: Hematocrit 34.7 % (37.0-53.0); Hemoglobin 12.6 g/dL (13.5-17.5)
[2021-11-09 06:34] LABS: Albumin, Blood 3.2 g/dL (3.4-5.0); Anion Gap 11 mmol/L (6-16); Blood Urea Nitrogen 15 mg/dL (8-24); CO2, Blood 25 mmol/L (21-32); Calcium, Blood 8.9 mg/dL (8.5-10.1); Chloride, Blood 91 mmol/L (98-108); Creatinine, Blood 1.25 mg/dL (0.60-1.20); Glomerular Filtration Rate 56 (60-); Glucose, Blood 97 mg/dL (70-99); Magnesium, Blood 1.6 mg/dL (1.6-2.4); Phosphorus, Blood 4.2 mg/dL (2.5-4.9); Potassium, Blood 4.3 mmol/L (3.5-5.5); Sodium, Blood 127 mmol/L (136-145)
--- NOTE | 2021-11-09 06:37 | NUR ---
PT A/OX4. REPORTING OCCASONAL/RARE MUSCLE SPASMS. DIURESED OVER 2L THIS SHIFT. SODIUM AT 2200 WAS 125. PT HAS RECIEVED 2G NA SINCE THIS LAB WAS DRAWN. VSS. NSR THROUGHOUT SHIFT.
--- NOTE | 2021-11-09 08:10 | NUR ---
INITIAL ASSESSMENT PATIENT ALERT AND ORIENTED X 4, AFEBRILE. PATIENT WEAK BUT AMBULATES WELL WITH 1 PERSON ASSIST TO TOILET. PATIENT DENIES PAIN. PATIENT SATTING 90% AND GREATER ON RA. LUNGS CLEAR THROUGHOUT. PATIENT IN ST, HR LOW 100S TO 1-TEENS. ORTHOSTATIC HYPOTENSION NOTED. LYING DOWN BP 127/76 AND STANDING UP BP 74/44. PATIENT REPORTS HE IS ASYMPTOMATIC WITH STANDING. GI WNL. WNL. SKIN APPEARS WNL. IVS FLUSHED AND SALINE LOCKED. BED LOW, CALL LIGHT IN REACH. WILL CONTINUE TO MONITOR PATIENT FREQUENTLY THROUGHOUT SHIFT.
--- NOTE | 2021-11-09 09:02 | NUR ---
DR. Bianca MCLAIN AND DR. SOMERS UPDATED ON PATIENT STATUS. INFORMED THAT PATIENT'S BP LYING DOWN 127/76 AND STANDING UP WAS 74/44. INFORMED THAT PATIENT REPORTED HE WAS ASYMPTOMATIC. INFORMED THAT PATIENT SLIGHTLY WEAK WHEN AMBULATING 1 PERSON ASSIST BUT REFUSED FEELING DIZZY OR LIGHT HEADED. INFORMED THAT PATIENT'S HR THIS AM IN LOW 100S TO 1-TEENS. INFORMED THAT PATIENT HAD 2 L URINE OUT ON MATERIAL CUTTER. DR. MCLAIN CALLED DR. PUGA AND PUT ORDERS IN.
--- NOTE | 2021-11-09 09:15 | NUR ---
ENCODING CLERK HERE TO SPEAK WITH PATIENT REGARDING HOME HEALTH.
--- NOTE | 2021-11-09 09:59 | NUR ---
DR. SOMERS UPDATED OF BP AFTER BOLUS; LYING DOWN 135/58, STANDING UP 92/ 49. DOCTOR STATED SHE WOULD UPDATE DISCHARGE MED LIST AND PATIENT OKAY FOR DISCHARGE.
[2021-11-09] MEDS ORDERED: FINA5 PO (10:23)
--- NOTE | 2021-11-09 11:33 | NUR ---
SHIFT SUMMARY PATIENT REMAINED ALERT AND ORIENTED X 4, AFEBRILE. PATIENT REMAINS SLIGHTLY WEAK BUT ABLE TO AMBULATE WELL IN ROOM. PATIENT DENIED ANY PAIN THIS SHIFT. PATIENT REMAINED SATTING 90% AND GREATER ON RA. PATIENT SR TO ST, HR 80S TO 1-TEENS. SBP 70S TO 90S WHILE STANDING AND 1-TEENS TO 130S WHILE LYING DOWN. PATIENT HAD 500 CC NS BOLUS WHICH IMPROVED STANDING BP AND LOWERED HR. PATIENT ASYMPTOMATIC WITH STANDING HYPOTENSION. PATIENT HAD BM THIS AM. WNL. SKIN WNL. IVS REMOVED. PATIENT UNDERSTANDS TO CONTINUE 1 L FLUID RESTRICTION WHILE AT HOME. WATER JUG WITH ML MEASUREMENTS SENT HOME WITH PATIENT. INFORMATION/ DISCHARGE PACKET EXPLAINED TO PATIENT. PATIENT ACKNOWLEDGED THAT HE UNDERSTOOD MATERIAL AND HAD NO FURTHER QUESTIONS. PATIENT INFORMED THAT MEDICATIONS CALLED IN TO [facility] ON [address]. CALLED THAT SHE IS AT FRONT. STAIN DIPPER TOOK PATIENT OUT IN WHEELCHAIR. DISCHARGE COMPLETE.
== END 2021-11-09 11:30 | disposition home or self-care (01) | DRG 644 ==
LOC: ER 04:10 → ICUW 07:48 → ICUE 07:48
PROVIDERS: Emergency Medicine; Family Medicine; Internal Medicine Nephrology; Student in an Organized Health Care Education/Training Program; ADMIT Internal Medicine
DX: E22.2 Syndrome of inappropriate secretion of antidiuretic hormone (principal); N17.9 Acute kidney failure, unspecified; E87.2 Acidosis; N25.81 Secondary hyperparathyroidism of renal origin; I95.1 Orthostatic hypotension; E83.51 Hypocalcemia; E03.9 Hypothyroidism, unspecified; I10 Essential (primary) hypertension; N40.0 Benign prostatic hyperplasia without lower urinary tract symptoms; E83.42 Hypomagnesemia; R00.1 Bradycardia, unspecified; Z98.890 Other specified postprocedural states; Z79.899 Other long term (current) drug therapy; E88.09 Other disorders of plasma-protein metabolism, not elsewhere classified; E87.6 Hypokalemia
CPT/HCPCS: 36415; 51701; 51702; 76770; 80048; 80053; 80069; 81003; 82330; 83735; 83930; 83935; 84100; 84132; 84295; 84300; 84443; 84484; 84550; 85014; 85018; 85025; 93005; 93010; 93306; 96374; 97110; 97116; 97161; 97165; 97530; 97535; 99285-25; A9270; C1751; J0461; J0610; J1650; J1940; J3475; J7030; J7040

== ENCOUNTER 2023-12-30 06:31 | Day surgery (SDC) | payer MEDICARE, OTHER ==
[~2023-12-30] VITALS: Ht 172.7 cm; Wt 75.3 kg
[~2023-12-30 06:31] MED LIST changes: +CALCIUM CARBON500 M1 PO; +DERMACINRX FOL1 EAC2 PO; +EUTHYROX75 MC1 PO; +FINA5 PO; +FLUDROCORTISON0.1 M1 PO; +HYDCOR10 PO; +METO25 PO
[2023-12-30] MEDS ORDERED: Lactated Ringer's 1,000 ML IV ONE ×2 (07:13→07:32)
[2023-12-30] MEDS ORDERED: LOSA50 PO (07:16)
[2023-12-30] MEDS ORDERED: propofoL 50 ML IV ONE (07:32)
[2023-12-30 08:48] VITALS: BP 121/65
== END 2023-12-30 09:05 | disposition home or self-care (01) ==
LOC: ORSCSDS 06:31
PROVIDERS: Internal Medicine Gastroenterology
PROC: 0DBL8ZX Excision of Transverse Colon, Via Natural or Artificial Opening Endoscopic, Diagnostic (ICD-10-PCS; principal; 2023-12-30 08:00)
PROC: 0DBK8ZX Excision of Ascending Colon, Via Natural or Artificial Opening Endoscopic, Diagnostic (ICD-10-PCS; principal; 2023-12-30 08:00)
PROC: 0DBM8ZX Excision of Descending Colon, Via Natural or Artificial Opening Endoscopic, Diagnostic (ICD-10-PCS; principal; 2023-12-30 08:00)
DX: Z12.11 Encounter for screening for malignant neoplasm of colon (principal); Z86.010 Personal history of colon polyps; Z80.0 Family history of malignant neoplasm of digestive organs; D12.2 Benign neoplasm of ascending colon; D12.3 Benign neoplasm of transverse colon; D12.4 Benign neoplasm of descending colon; K57.30 Diverticulosis of large intestine without perforation or abscess without bleeding; I12.9 Hypertensive chronic kidney disease with stage 1 through stage 4 chronic kidney disease, or unspecified chronic kidney disease; N18.9 Chronic kidney disease, unspecified; E03.9 Hypothyroidism, unspecified; N40.0 Benign prostatic hyperplasia without lower urinary tract symptoms; Z79.899 Other long term (current) drug therapy
CPT/HCPCS: 88305; J2704; J7120

== ENCOUNTER 2025-07-08 14:13 | Emergency (ER) | payer MEDICARE, OTHER ==
[~2025-07-08] VITALS: Ht 172.7 cm; Wt 77.6 kg
[~2025-07-08 14:13] MED LIST changes: +LOSA50 PO
[2025-07-08 14:56] LABS: BASOPHILS ABSOLUTE AUTO 0.04 K/mm3 (0.00-0.23); BASOPHILS PERCENT AUTO 1 % (0-2); EOSINOPHILS ABSOLUTE AUTO 0.01 K/mm3 (0.00-0.68); EOSINOPHILS PERCENT AUTO 0 % (0-6); Hematocrit 39.7 % (37.0-53.0); Hemoglobin 13.7 g/dL (13.5-17.5); IMMATURE GRAN ABSOLUTE AUTO 0.02 K/mm3 (0.00-0.10); IMMATURE GRAN PERCENT AUTO 0 % (0-1); LYMPHOCYTES ABSOLUTE AUTO 1.29 K/mm3 (0.84-5.20); LYMPHOCYTES PERCENT AUTO 19 % (21-46); MONOCYTES ABSOLUTE AUTO 1.43 K/mm3 (0.16-1.47); MONOCYTES PERCENT AUTO 21 % (4-13); Mean Corpuscular HGB Conc 34.5 g/dL (31.5-36.5); Mean Corpuscular Volume 91 fL (80-100); NEUTROPHILS ABSOLUTE AUTO 4.08 K/mm3 (1.96-9.15); NEUTROPHILS PERCENT AUTO 59 % (41-73); NRBC ABSOLUTE 0.00 K/mm3 (0.00-0.02); NRBC Auto 0.0 /100 WBC (0.0-0.2); Platelet Count 170 K/mm3 (150-400); RDW Coefficient Variation 13.2 % (11.7-14.2); RDW Standard Deviation 44.2 fL (35.1-46.3)
[2025-07-08 15:16] LABS: Alanine Aminotransfer (ALT/SGP 35 U/L (12-78); Albumin, Blood 3.3 g/dL (3.4-5.0); Albumin/Globulin Ratio 1.1 (0.8-1.8); Anion Gap 10 mmol/L (3-11); Aspartate Aminotrans (AST/SGOT 40 U/L (12-37); Bilirubin, Total 0.8 mg/dL (0.1-1.0); Blood Urea Nitrogen 21 mg/dL (8-24); CO2, Blood 25 mmol/L (21-32); Calcium, Blood 8.3 mg/dL (8.5-10.1); Chloride, Blood 99 mmol/L (98-108); Creatinine, Blood 1.58 mg/dL (0.60-1.20); Globulin, Blood 3.0 g/dL (2.2-4.0); Glucose, Blood 84 mg/dL (70-99); Magnesium, Blood 1.7 mg/dL (1.6-2.4); Potassium, Blood 3.6 mmol/L (3.5-5.5); Sodium, Blood 130 mmol/L (136-145); Total Protein, Blood 6.3 g/dL (6.4-8.2)
[2025-07-08] MEDS ORDERED: Ketorolac Tromethamine 15mg Vial IV ONE (15:20)
[2025-07-08 16:34] LABS: Source, Urine Clean Catch
[2025-07-08 16:37] LABS: Influenza A, PCR NEGATIVE (NEGATIVE); Influenza B, PCR NEGATIVE (NEGATIVE); Resp Syncytial Virus, PCR NEGATIVE (NEGATIVE)
[2025-07-08 16:48] LABS: Bilirubin, Urine Neg (Neg); Color, Urine Yellow (P-Yellow); Glucose Qualitative, Urine Neg (Neg); Ketones, Urine 1+ (Neg); Leukocyte Esterase, Urine Neg (Neg); Protein, Urine 1+ (Neg); Specific Gravity, Urine 1.015 (1.003-1.022); Urobilinogen, Urine NORM (Normal)
[2025-07-08 17:39] LABS: SARS-Cov-2 (COVID-19) PCR, MMC POSITIVE (NEGATIVE)
[2025-07-08 18:00] VITALS: BP 111/52
== END 2025-07-08 18:15 ==
LOC: ER 14:13
PROVIDERS: Student in an Organized Health Care Education/Training Program
DX: U07.1 COVID-19 (principal); R53.1 Weakness; I10 Essential (primary) hypertension; E03.9 Hypothyroidism, unspecified; Z79.899 Other long term (current) drug therapy
CPT/HCPCS: 80053; 83735; 85025; 87637; 93005; 93010; 96374; 99285-25; A9270; J1885; J7120